=== PATIENT | female | born 1965 | race Caucasian/White ===

== ENCOUNTER → 2018-07-28 | Outpatient (CLI) | payer OTHER ==
[~2018-07-28] MED LIST: IOHEXOL 300 MG/ML 50 ML VIAL. IT ONE; LIDOCAINE 1% Multi-Dose 20 ML VIAL. ID ONE
--- NOTE | 2018-07-28 11:41 | KCIC ---
Thoracic and lumbar myelogram History: Severe back pain into both legs getting worse over the last 3 months Technique: Patient was informed of the risks of the procedure to include pain, infection, bleeding, seizures, nerve root injury, and allergic reaction to the contrast. All questions were answered. Patient signed a written consent form for a thoracic and lumbar myelogram. The patient was placed in a prone oblique position on the fluoroscopy table. External site of the lower back was prepped and draped in the usual sterile fashion. Betadine was utilized for cleansing solution. 1% lidocaine was utilized for local anesthesia at the anticipated site of puncture right L2-3 interlaminar space. A 19-gauge guiding needle was advanced into the soft tissues. Through the guiding needle, a 25 gauge Desmond needle was advanced until there was return of cerebral spinal fluid. Approximately 10 cc of Omnipaque 300 were then injected during fluoroscopic visualization. The needles were removed. Fluoroscopic spot images including standing images were acquired of the thoracic and lumbar spine. The patient was then transferred to the CT department for CT examination of the lumbar spine. There were no immediate complications. Fluoroscopy time: 1 minute 22 seconds, 19 images Findings: There is no evidence of myelographic block. There is posterolateral fusion hardware L4, L5, S1. There are thoracic spinal stimulator leads terminating near the T7 level. Impression: 1. There is posterolateral fusion hardware L4-S1. There are thoracic spinal stimulator leads terminating near the T7 level. Electronically signed by: Ruyd Jeong MD (07/28/2018 11:37 AM) [facility]
--- NOTE | 2018-07-28 12:55 | KCIC ---
CT thoracic and lumbar spine exam History: Severe back pain into bilateral legs getting worse the last 3 months Technique: CT imaging was performed of the thoracic and lumbar spine spine after injection for myelogram. Multiplanar reconstruction images are submitted. Exposure: One or more of the following individualized dose reduction techniques were utilized for this examination: 1. Automated exposure control 2. Adjustment of the mA and/or kV according to patient size 3. Use of iterative reconstruction technique. Comparison: Lumbar spine exam September 21, 2006 Thoracic: Findings: Thoracic vertebral body stature is overall preserved. There is negligible anterior spondylolisthesis at T1-T2, T2-3, T3-4. Thoracic cord caliber is within normal limits. There are posterior thoracic spinal stimulator leads, terminate at the level of T6-7. There is no significant focal posterior disc abnormality of the thoracic spine. There is no thoracic spinal stenosis. There is moderate narrowing of the posterior left T10-11 neural foramen due to facet degenerative change. There is multilevel overall mild degenerative disc disease greatest T5-T6 to T8-T9. IMPRESSION: 1. There are thoracic spinal stimulator leads terminating at T6-7. 2. There is moderate narrowing of the left T10-11 neural foramen due to facet degenerative change. 3. There is multilevel mild degenerative disc disease. Lumbar: FINDINGS: Lumbar vertebral body stature is preserved. AP alignment is unchanged, within normal limits. There is intact posterolateral fusion hardware with bilateral pedicle screws L4, L5, S1 attached to vertical rods. Conus terminates at T12-L1. There is mild degenerative disc disease L1-L2 through L3-4 somewhat greater than previously. There is mild lumbar levoscoliosis. There is again interbody calcification L4-5 and L5-S1. T12-L1: Neural foramina and spinal canal are adequate. L1-L2: There is mild facet degenerative change. There is negligible disc osteophyte complex. Neural foramina and spinal canal are adequate. L2-L3: There is moderate right greater than left facet degenerative change. Spinal canal is adequate. There is mild posterior narrowing of the right neural foramen, left neural foramen adequate. L3-L4: There is moderate facet hypertrophic change. Spinal canal and neural foramina are adequate. L4-L5: There is artifact created by hardware. There is left laminectomy defect. Spinal canal is adequate. Neural foramina are overall adequate. L5-S1: There is left laminectomy defect. Spinal canal is adequate. Neural foramina are somewhat poorly visualized due to artifact created by hardware. Osteophytes contribute to likely at least mild narrowing of the inferior right neural foramen, left neural foramen likely adequate. Impression: 1. There is intact posterolateral fusion hardware L4-S1. There is no lumbar spinal stenosis. There is mild degenerative disc disease L1-L2 through L3-4 progressed since previous 2006 exam. There is probable mild narrowing of the inferior right L5-S1 neural foramen by osteophytes, also mild posterior narrowing on the right at L2-3. Electronically signed by: Rudy Jeong MD (07/28/2018 12:51 PM) [facility]
--- NOTE | 2018-07-28 13:24 | KCIC ---
EXAM: Lumbar spine, flexion and extension. HISTORY: Pain. COMPARISON: CT obtained on the same date. FINDINGS: Frontal, lateral, flexion and extension and coned sacral views of the lumbar spine are obtained. There is instrumented and noninstrumented posterior spinal fusion at L4-S1. There is no motion at the fused levels between flexion and extension. There is degenerative endplate remodeling primarily at L5-S1. There is a generator within the right buttock with leads extending cephalad beyond the [id number]. There is minimal lumbar levocurvature. IMPRESSION: 1. Lumbar spinal fusion at L4-S1. There is no evidence of instrumentation loosening. 2. Degenerative change primarily at the lumbosacral junction. Electronically signed by: Kathia Ramires MD (07/28/2018 1:20 PM) [facility]
== END | disposition home or self-care (01) ==
LOC: KCIC 09:00
PROVIDERS: ATTEND Neurological Surgery
DX: M51.36 Other intervertebral disc degeneration, lumbar region (principal); M48.04 Spinal stenosis, thoracic region; M25.78 Osteophyte, vertebrae; M48.061 Spinal stenosis, lumbar region without neurogenic claudication; M43.27 Fusion of spine, lumbosacral region
CPT/HCPCS: 72110; 72129; 72132; 72270; Q9967

== ENCOUNTER → 2019-08-28 | Outpatient (CLI) | payer MEDICAID, MEDICARE, OTHER ==
[~2019-08-28] MED LIST changes: +IOHEXOL 180 MG/ML 10 ML VIAL. IT ONE; -IOHEXOL 300 MG/ML 50 ML VIAL. IT ONE
--- NOTE | 2019-08-28 17:50 | KCIC ---
Flexion-extension lateral radiographs of lumbar spine to include a Lumbar myelogram 08/28/2019 Clinical History: Low back pain which radiates down both legs, left greater than right. History of previous lumbar spine surgery. Technique: After the risks and benefits of the procedure were explained to the patient, written informed consent was obtained. The patient was placed prone on the fluoroscopy table and the lower back was prepped and draped in sterile fashion. 1% lidocaine was used as a local anesthetic. Under fluoroscopic guidance, the thecal sac of the lumbar cistern was punctured at the L3-4 level using 25-gauge Desmond needle. After confirming clear CSF return, 15 cc of Omnipaque 180 were injected through the needle into the thecal sac of the lumbar cistern under fluoroscopic guidance. Following this the needle was removed and hemostasis achieved at the puncture site. A sterile bandage was placed on the skin puncture site. AP, bilateral oblique, lateral and standing neutral, flexion and extension lateral digital radiographs of the lumbar spine were obtained. Following this the patient was taken to CT where a CT scan of the lumbar spine was performed. This will be reported separately. Following the examinations the patient was sent home with an instruction sheet. The patient tolerated the procedure well and there were no immediate complications. The total fluoroscopic time for this procedure was 1:09 minutes. 9 digital spot images were obtained. Findings: Standing Flexion and extension lateral digital radiographs of lumbar spine were obtained prior to the myelogram. These demonstrate stabilizing rods and pedicle screws extending from L4 to S1. Degenerative changes consisting of vertebral endplate sclerosis and minimal to mild anterior and posterior vertebral body osteophyte formation are seen throughout the lumbar disc spaces. Disc space narrowing is seen at L4-5 and L5-S1. Atherosclerotic calcification of the abdominal aorta and its branches is noted. The alignment of the lumbar vertebrae is maintained on the flexion and extension radiographs. Images from the lumbar myelogram demonstrate very mild S-shaped curvature of the thoracolumbar spine. The patient is post posterolateral fusion using pedicle screws and stabilizing rods at L4-5 and L5-S1. Degenerative changes consisting of disc space narrowing, vertebral endplate sclerosis and minimal to mild anterior and posterior vertebral body osteophyte formation is seen predominantly at the L3-4, L4-5 and L5-S1 levels. Mild anterior and posterior extradural defects are seen upon the contrast column at L1-2, L2-3 and L3-4. There is no evidence of complete block of contrast at any level involving the lumbar vertebrae. The alignment of the lumbar vertebrae is maintained on the flexion and extension radiographs. Atherosclerotic calcification of the abdominal aorta is seen. Impression: 1. Post fusion at L4-5 and L5-S1. 2. Degenerative changes are seen throughout the lumbar disc spaces resulting in mild anterior and posterior extradural defects upon the contrast column at L1-2, L2-3 and L3-4. Electronically signed by: Jose Juan Diaz MD (08/28/2019 5:48 PM) [facility]
--- NOTE | 2019-08-28 18:03 | KCIC ---
CT lumbar myelogram 08/28/2019 Clinical History: Low back pain which radiates down both legs, left greater than right. History of previous lumbar spine surgery. Technique: This study was performed after a lumbar myelogram, contiguous, 0.6 mm axial sections were obtained through the lumbar spine. 3 mm sagittal, coronal and axial reconstructed images were obtained. One or more of the following individualized dose reduction techniques were utilized for this study: 1. Automated exposure control. 2. Adjustment of the mA and/or kV according to patient size. 3. Use of iterative reconstruction technique. Findings: Comparison is made to patient's previous lumbar myelogram dated 07/28/2018. Additional comparison is made to the patient's lumbar myelogram performed earlier today. The sagittal and coronal reconstructed images demonstrate very mild S-shaped curvature of the thoracolumbar spine. The patient is post posterolateral fusion using pedicle screws, stabilizing rods and bone graft material at L4-5 and L5-S1. The right-sided pedicle screw at L4 extends through the cortex of the superior L4 vertebral body into the inferior aspect of the L3-4 disc, anteriorly. This finding is unchanged. Degenerative changes consisting of vertebral endplate sclerosis and minimal to mild anterior vertebral body osteophyte formation are seen throughout the lumbar disc spaces. Disc space narrowing is seen at L4-5 and L5-S1. Atherosclerotic calcification of the abdominal aorta is seen. At the L1-2 disc space is a mild generalized disc bulge. Degenerative changes are seen involving the facet joints, left greater than right. There is mild to moderate ligamentum flavum hypertrophy bilaterally. These findings do not result in significant central spinal canal stenosis. Mild left neural foraminal stenosis is seen. The right neural foramen is patent. At the L2-3 disc space there is a mild generalized disc bulge. Degenerative changes are seen involving the facet joints bilaterally. There is mild ligamentum flavum hypertrophy bilaterally. These findings when combined do not result in significant central spinal canal or neural foraminal stenosis. At the L3-4 disc space there is a mild generalized disc bulge. Degenerative changes are seen involving the facet joints bilaterally. There is mild to moderate ligamentum flavum hypertrophy bilaterally. These findings do not result in significant central spinal canal or neural foraminal stenosis. At the L4-5 disc space patient appears to be post left hemilaminotomy. Degenerative changes are seen involving the facet joints bilaterally. These findings do not result in significant central spinal canal or neural foraminal stenosis. At the L5-S1 disc space the patient appears to be post left laminectomy. Degenerative changes are seen involving the facet joints, right greater than left. These findings do not result in significant central spinal canal stenosis. Mild right neural foraminal stenosis is seen. The left neural foramen is patent. IMPRESSION: 1. Postsurgical changes are seen at L4-5 and L5-S1 as discussed above. 2. The changes of degenerative disc disease are seen involving lumbar spine. These findings do not result in significant central spinal canal stenosis. Mild left neural foraminal stenosis is seen at L1-2. Mild right neural foraminal stenosis is seen at L5-S1. Electronically signed by: Jose Juan Diaz MD (08/28/2019 6:00 PM) [facility]
== END | disposition home or self-care (01) ==
LOC: KCIC 13:34
PROVIDERS: ATTEND Neurological Surgery
DX: M47.26 Other spondylosis with radiculopathy, lumbar region (principal); I70.0 Atherosclerosis of aorta; M25.78 Osteophyte, vertebrae; M48.061 Spinal stenosis, lumbar region without neurogenic claudication; M43.26 Fusion of spine, lumbar region; M48.07 Spinal stenosis, lumbosacral region
CPT/HCPCS: 72100; 72132; 72265; Q9965

== ENCOUNTER 2021-09-24 14:59 | Observation (INO) | payer MEDICARE, OTHER ==
[~2021-09-24] VITALS: Ht 170.2 cm; Wt 90.8 kg
[2021-09-24] MEDS ORDERED: ASPIRIN 325 MG TABLET PO ONE (15:30)
[2021-09-24] MEDS: NITROGLYCERIN SUBLINGUAL 0.4 MG BOTTLE OF 25. SL PRN ×2 (15:35→15:41)
[2021-09-24] MEDS: MORPHINE SULFATE 4 MG/ML INJ. IV/SQ PRN ×2 (15:35→17:40)
[2021-09-24 15:46] LABS: BASO % 1 % (0-3); EOS # 0.2 x10^3/uL (0.0-0.7); EOS % 3 % (0-3); HEMATOCRIT 39.1 % (36.0-47.0); HEMOGLOBIN 13.4 g/dL (12.0-15.5); LYMPH # 1.7 x10^3/uL (1.0-4.8); LYMPH % 32 % (24-48); MEAN CORPUSCULAR HEMOGLOBIN 31 pg (25-35); MEAN CORPUSCULAR HGB CONC 34 g/dL (31-37); MEAN CORPUSCULAR VOLUME 90 fL (79-100); MONO # 0.3 x10^3/uL (0.0-1.1); MONO % 6 % (0-9); NEUT % 58 % (31-73); PLATELET COUNT 273 x10^3/uL (140-400); RED BLOOD COUNT 4.32 x10^6/uL (3.50-5.40); RED CELL DISTRIBUTION WIDTH 13.3 % (11.5-14.5); WHITE BLOOD COUNT 5.2 x10^3/uL (4.0-11.0)
[2021-09-24 15:58] LABS: CALCIUM 8.5 mg/dL (8.5-10.1); CREATININE 0.7 mg/dL (0.6-1.0); GFR 87.2; POTASSIUM 3.8 mmol/L (3.5-5.1)
--- NOTE | 2021-09-24 16:10 | RAD ---
Single AP view of the chest. Comparison: None. Indication: Chest pain Findings: There are degenerative device is identified. The heart is not enlarged. There is no pneumothorax or effusion. No air space or interstitial disease. Impression: 1. No acute cardiopulmonary process. Electronically signed by: Perfecto Diallo MD (09/24/2021 4:08 PM) [facility]
[2021-09-24 16:12] LABS: ALBUMIN 3.5 g/dL (3.4-5.0); ALBUMIN/GLOBULIN RATIO 1.1 (1.0-1.7); MAGNESIUM 1.9 mg/dL (1.8-2.4); TOTAL BILIRUBIN 0.1 mg/dL (0.2-1.0); TOTAL PROTEIN 6.8 g/dL (6.4-8.2)
[2021-09-24 16:19] LABS: BILIRUBIN,URINE NEGATIVE (NEG); CLARITY,URINE CLEAR; COLOR,URINE YELLOW; NITRITE,URINE NEGATIVE (NEG); PROTEIN,URINE NEGATIVE (NEG-TRACE); UROBILINOGEN,URINE 0.2 mg/dL (0.2 mg/dL)
[2021-09-24 16:26] LABS: BACTERIA,URINE MODERATE /HPF (0-FEW); RBC,URINE 0 /HPF (0-2); WBC,URINE 0 /HPF (0-4)
[2021-09-24 16:28] LABS: BARBITURATES POS (NEG); BENZODIAZEPINES NEG (NEG); CANNABINOIDS NEG (NEG); COCAINE NEG (NEG); METHADONE NEG (NEG); OPIATES POS (NEG); PHENCYCLIDINE NEG (NEG)
[2021-09-24 16:29] LABS: AMPHETAMINE/METHAMPHETAMINE NEG (NEG)
--- NOTE | 2021-09-24 16:56 | PHYS DOC ---
Past Medical History Past Medical History: Anxiety, Depression, Hypertension Past Surgical History: Other Additional Past Surgical Histo: SPINE STIMULATOR, ANGIOPLASTY Smoking Status: Current Every Day Smoker Alcohol Use: Occasionally General Adult EDM: Chief Complaint: CHEST PAIN HPI: HPI: Patient is a 56 year old female with a history of angioplasty, anxiety, depression, HTN, who presents to the ED today complaining of a 5 out of 10 substernal chest pain radiating to the right armpit with shortness of breath, symptoms began a week ago. Patient denies anything specifically exacerbating or relieving the symptoms. She states the symptoms are intermittent. She states she took 2 nitroglycerin today with relief of her pain. She states she thinks it could be anxiety but wanted to be checked out. Review of Systems: Review of Systems: Constitutional: Denies fever or chills. [] Eyes: Denies change in visual acuity. [] HENT: Denies nasal congestion or sore throat. [] Respiratory: Reports shortness of breath. Denies cough Cardiac: Reports right-sided chest pain GI: Denies abdominal pain, nausea, vomiting, bloody stools or diarrhea. [] : Denies dysuria. [] Musculoskeletal: Denies back pain or joint pain. [] Integument: Denies rash. [] Neurologic: Denies headache, focal weakness or sensory changes. [] Psychiatric: Denies depression or anxiety. [] Heart Score: C/O Chest Pain: Yes HEART Score for Chest Pain: HEART Score for Chest Pain Response (Comments) Value History Slighlty/Non-Suspicious 0 ECG Normal 0 Age >45 - < 65 1 Risk Factors 1 or 2 Risk Factors 1 Troponin < Normal Limit 0 Total 2 Risk Factors: Risk Factors: DM, Current or recent (<one month) smoker, HTN, HLP, family history of CAD, obesity. Risk Scores: Score 0 - 3: 2.5% MACE over next 6 weeks - Discharge Home Score 4 - 6: 20.3% MACE over next 6 weeks - Admit for Clinical Observation Score 7 - 10: 72.7% MACE over next 6 weeks - Early Invasive Strategies Current Medications: Current Medications Medications (Trade) Dose Ordered Sig/Corky Start Time Stop Time Status Last Admin Dose Admin Aspirin (Lou Aspirin) 325 mg 1X ONCE 09/24/21 15:30 09/24/21 15:31 DC 09/24/21 15:36 325 MG Morphine Sulfate (Morphine Sulfate) 4 mg PRN Q15MIN PRN 09/24/21 15:30 09/25/21 15:29 09/24/21 15:35 4 MG Nitroglycerin (Nitrostat) 0.4 mg PRN Q5MIN PRN 09/24/21 15:30 09/25/21 15:29 09/24/21 15:41 0.4 MG Allergies: Allergies: Allergies Coded Allergies Type Severity Reaction Last Updated Verified No Known Drug Allergies 07/28/18 No Physical Exam: PE: Constitutional: Well developed, well nourished, no acute distress, non-toxic appearance. [] HENT: Normocephalic, atraumatic, bilateral external ears normal, oropharynx moist, no oral exudates, nose normal. [] Eyes: PERRLA, EOMI, conjunctiva normal, no discharge. [] Neck: Normal range of motion, no tenderness, supple, no stridor. [] Cardiovascular:Heart rate regular rhythm, no murmur [] Lungs & Thorax: Bilateral breath sounds clear to auscultation [] Abdomen: Bowel sounds normal, soft, no tenderness, no masses, no pulsatile masses. [] Skin: Warm, dry, no erythema, no rash. [] Back: No tenderness, no CVA tenderness. [] Extremities: No tenderness, no cyanosis, no clubbing, ROM intact, no edema. [] Neurologic: Alert and oriented X 3, normal motor function, normal sensory function, no focal deficits noted. [] Psychologic: Affect normal, judgement normal, mood normal. [] Current Patient Data: Labs: Laboratory Tests Test 09/24/21 15:24 09/24/21 15:53 White Blood Count 5.2 x10^3/uL (4.0-11.0) Red Blood Count 4.32 x10^6/uL (3.50-5.40) Hemoglobin 13.4 g/dL (12.0-15.5) Hematocrit 39.1 % (36.0-47.0) Mean Corpuscular Volume 90 fL (79-100) Mean Corpuscular Hemoglobin 31 pg (25-35) Mean Corpuscular Hemoglobin Concent 34 g/dL (31-37) Red Cell Distribution Width 13.3 % (11.5-14.5) Platelet Count 273 x10^3/uL (140-400) Neutrophils (%) (Auto) 58 % (31-73) Lymphocytes (%) (Auto) 32 % (24-48) Monocytes (%) (Auto) 6 % (0-9) Eosinophils (%) (Auto) 3 % (0-3) Basophils (%) (Auto) 1 % (0-3) Neutrophils # (Auto) 3.0 x10^3/uL (1.8-7.7) Lymphocytes # (Auto) 1.7 x10^3/uL (1.0-4.8) Monocytes # (Auto) 0.3 x10^3/uL (0.0-1.1) Eosinophils # (Auto) 0.2 x10^3/uL (0.0-0.7) Basophils # (Auto) 0.0 x10^3/uL (0.0-0.2) Sodium Level 138 mmol/L (136-145) Potassium Level 3.8 mmol/L (3.5-5.1) Chloride Level 103 mmol/L (98-107) Carbon Dioxide Level 25 mmol/L (21-32) Anion Gap 10 (6-14) Blood Urea Nitrogen 10 mg/dL (7-20) Creatinine 0.7 mg/dL (0.6-1.0) Estimated GFR (Cockcroft-Gault) 87.2 BUN/Creatinine Ratio 14 (6-20) Glucose Level 101 mg/dL (70-99) H Calcium Level 8.5 mg/dL (8.5-10.1) Magnesium Level 1.9 mg/dL (1.8-2.4) Total Bilirubin 0.1 mg/dL (0.2-1.0) L Aspartate Amino Transferase (AST) 11 U/L (15-37) L Alanine Aminotransferase (ALT) 21 U/L (14-59) Alkaline Phosphatase 148 U/L (46-116) H Troponin I High Sensitivity 5 ng/L (4-50) TH-Vqp-I-Type Natriuretic Peptide 127 pg/mL (0-124) H Total Protein 6.8 g/dL (6.4-8.2) Albumin 3.5 g/dL (3.4-5.0) Albumin/Globulin Ratio 1.1 (1.0-1.7) Thyroid Stimulating Hormone (TSH) 0.680 uIU/mL (0.358-3.74) Urine Collection Type Unknown Urine Color Yellow Urine Clarity Clear Urine pH 6.0 (<5.0-8.0) Urine Specific [place] 1.015 (1.000-1.030) Urine Protein Negative mg/dL (NEG-TRACE) Urine Glucose (UA) Negative mg/dL (NEG) Urine Ketones (Stick) Negative mg/dL (NEG) Urine Blood Negative (NEG) Urine Nitrite Negative (NEG) Urine Bilirubin Negative (NEG) Urine Urobilinogen Dipstick 0.2 mg/dL (0.2 mg/dL) Urine Leukocyte Esterase Negative (NEG) Urine RBC 0 /HPF (0-2) Urine WBC 0 /HPF (0-4) Urine Squamous Epithelial Cells Mod /LPF Urine Bacteria Moderate /HPF (0-FEW) Urine Mucus Slight /LPF Urine Opiates Screen Pos (NEG) Urine Methadone Screen Neg (NEG) Urine Barbiturates Pos (NEG) Urine Phencyclidine Screen Neg (NEG) Urine Amphetamine/Methamphetamine Neg (NEG) Urine Benzodiazepines Screen Neg (NEG) Urine Cocaine Screen Neg (NEG) Urine Cannabinoids Screen Neg (NEG) Urine Ethyl Alcohol Neg (NEG) Laboratory Tests 09/24/21 15:24 Laboratory Tests 09/24/21 15:24 Vital Signs: Vital Signs Date Time Temp Pulse Resp B/P (MAP) Pulse Ox O2 Delivery O2 Flow Rate FiO2 09/24/21 15:41 71 124/69 09/24/21 15:38 14 97 Room Air 09/24/21 15:02 99.0 99.0 EKG: EK interpreted by Dr. Chaves sinus rhythm heart rate 66 no STEMI [] [address] Chaves sinus rhythm heart rate 62 no STEMI [] Radiology/Procedures: Radiology/Procedures: []PROCEDURE: PORTABLE CHEST 1V Single AP view of the chest. Comparison: None. Indication: Chest pain Findings: There are degenerative device is identified. The heart is not enlarged. There is no pneumothorax or effusion. No air space or interstitial disease. Impression: 1. No acute cardiopulmonary process. Electronically signed by: Perfecto Diallo MD (09/24/2021 4:08 PM) [facility] DICTATED and SIGNED BY: PERFECTO DIALLO MD DATE: 09/24/21 [id number] 0 Course & Med Decision Making: Course & Med Decision Making Pertinent Labs and Imaging studies reviewed. (See chart for details) This is a 56-year-old female patient presented to the ED today complaining of right-sided chest pain radiating to the right armpit, symptoms for a week. EKG is negative. Troponin is normal, chest x-ray is negative, vitals are st able. Spoke with Dr. Celaya who accepted patient for admission Routine consult placed for cardiology Dragon Disclaimer: Sarai Disclaimer: This electronic medical record was generated, in whole or in part, using a voice recognition dictation system. Departure Departure Impression: Primary Impression: Chest pain Qualified Codes: R07.9 - Chest pain, unspecified Disposition: ADMITTED INPATIENT Condition: STABLE Referrals: LUCINDA ALEJANDRO MD (PCP) SARA CASTELLANO POWER PRESS OPERATOR Sep 24, 2021 16:55
--- NOTE | 2021-09-24 18:55 | EKG ---
[facility] [address] [place] [address] Test Date: 2021-09-24 Test Time: 15:10:42 Pat Name: TRAY MONZON Department: Room: Gender: F Induction Heat Treater: : 1965 Requested By: SARA CASTELLANO Order Number: [id number] Reading MD: Ke Gutierrez MD Measurements Intervals [place] Rate: 66 P: 0 [place]: 158 QRS: 20 QRSD: 84 T: 9 QT: 404 QTc: 425 Interpretive Statements SINUS RHYTHM Electronically Signed On 09-28-2021 21:40:37 RESIDENTIAL INSTALLER by Ke Gutierrez MD
--- NOTE | 2021-09-24 18:56 | EKG ---
[facility] [address] [place] [address] Test Date: 2021-09-24 Test Time: 16:12:02 Pat Name: TRAY MONZON Department: Room: Gender: F Power Barker: : 1965 Requested By: SARA CASTELLANO Order Number: [id number] Reading MD: Ke Gutierrez MD Measurements Intervals [place] Rate: 62 P: 27 [place]: 174 QRS: 18 QRSD: 82 T: 9 QT: 404 QTc: 412 Interpretive Statements SINUS RHYTHM Electronically Signed On 09-28-2021 21:40:00 PAN PULLER by Ke Gutierrez MD
[2021-09-24] MEDS ORDERED: MORPHINE SULFATE 4 MG/ML INJ. IVP PRN (20:30)
[2021-09-24] MEDS ORDERED: NITROGLYCERIN SUBLINGUAL 0.4 MG BOTTLE OF 25. SL PRN (20:30)
[2021-09-24] MEDS ORDERED: ONDANSETRON PF 4 MG/2 ML VIAL. IVP PRN (20:30)
[2021-09-24 23:31] VITALS: BP 114/72
[2021-09-25] VITALS (13 sets, daily range): BP systolic 100–124; BP diastolic 49–58
[2021-09-25] MEDS ORDERED: DULO60CA7 PO (00:19)
[2021-09-25] MEDS ORDERED: LISI10TA16 PO (00:19)
[2021-09-25] MEDS ORDERED: CLONAZEPAM1 MG PO (00:19)
[2021-09-25] MEDS ORDERED: CYAN-25 PO (00:19)
[2021-09-25] MEDS ORDERED: TIZA-75 PO (00:19)
[2021-09-25] MEDS ORDERED: OMEP40CA7 PO (00:19)
[2021-09-25] MEDS ORDERED: METH-562 PO (00:19)
[2021-09-25] MEDS ORDERED: MORP-16 PO (00:19)
[2021-09-25] MEDS ORDERED: ROPI1TAB4 PO (00:19)
[2021-09-25] MEDS ORDERED: GABA300C18 PO (00:19)
[2021-09-25 06:27] LABS: BASO % 1 % (0-3); EOS # 0.2 x10^3/uL (0.0-0.7); EOS % 4 % (0-3); HEMATOCRIT 35.1 % (36.0-47.0); HEMOGLOBIN 11.7 g/dL (12.0-15.5); LYMPH # 2.2 x10^3/uL (1.0-4.8); LYMPH % 42 % (24-48); MEAN CORPUSCULAR HEMOGLOBIN 30 pg (25-35); MEAN CORPUSCULAR HGB CONC 33 g/dL (31-37); MEAN CORPUSCULAR VOLUME 91 fL (79-100); MONO # 0.5 x10^3/uL (0.0-1.1); MONO % 10 % (0-9); NEUT # 2.2 x10^3/uL (1.8-7.7); NEUT % 44 % (31-73); PLATELET COUNT 229 x10^3/uL (140-400); RED BLOOD COUNT 3.87 x10^6/uL (3.50-5.40); WHITE BLOOD COUNT 5.1 x10^3/uL (4.0-11.0)
[2021-09-25 06:41] LABS: ALBUMIN 3.2 g/dL (3.4-5.0); ALBUMIN/GLOBULIN RATIO 1.1 (1.0-1.7); CALCIUM 8.7 mg/dL (8.5-10.1); CREATININE 0.6 mg/dL (0.6-1.0); GFR 104.2; POTASSIUM 3.9 mmol/L (3.5-5.1); TOTAL BILIRUBIN 0.2 mg/dL (0.2-1.0); TOTAL PROTEIN 6.2 g/dL (6.4-8.2)
--- NOTE | 2021-09-25 10:30 | PDOC2 ---
SURENDRA ALBARRAN APPLICATION DEVELOPMENT SPECIALIST 09/25/21 1030: CARDIAC CONSULT DATE OF CONSULT Date of Consult DATE: 09/25/21 TIME: 10:07 REASON FOR CONSULT Reason for Consult: Chest pain REFERRING PHYSICIAN Referring Physician: Susan SOURCE Source: Chart review, Patient HISTORY OF PRESENT ILLNESS HISTORY OF PRESENT ILLNESS This is a pleasant 56 yo female admitted for complains of chest pain. This started Thanksgiving and has been having SOA with it. Described as chest achiness more to right side going to her armpit precipitated by short distance walking or exertion. No nausea or vomiting. She takes metoprolol and lisinopril bu no statin and has not taken ASA since she was told to stop it 4 months ago for her spinal stimulator placement. She has not seen a gas appliance servicer in a while. No known covid-19 exposure and she has been vaccinated. No fever chills or cough. Also she has noticed her SBP at times runs at 180s. PAST MEDICAL HISTORY Cardiovascular: CAD, HTN, Hyperlipidemia Pulmonary: No pertinent hx CENTRAL NERVOUS SYSTEM: TIA, Other (Cerebral AVM. Arnold chiari malformation) GI: GERD Heme/Onc: No pertinent hx Hepatobiliary: No pertinent hx Psych: Anxiety Musculoskeletal: low back pain, Osteoarthritis, Other (chronic back pain syndrome) Rheumatologic: No pertinent hx Infectious disease: No pertinent hx ENT: No pertinent hx Renal/: No pertinent hx Endocrine: Hypothyroidism Dermatology: No pertinent hx PAST SURGICAL HISTORY Past Surgical History: Hysterectomy, Other (PCI 15 yrs ago; left shoulder ligament repair, spinal stimulator placement with last change 4 months ago, Small bowel resection) FAMILY HISTORY Family History: Coronary Artery Disease (father), Heart Disease (mother) SOCIAL HISTORY Smoke: <1 pack per day ALCOHOL: none Drugs: None Lives: with Family CURRENT MEDICATIONS CURRENT MEDICATIONS Current Medications Medications (Trade) Dose Ordered Sig/Corky Route PRN Reason Start Time Stop Time Status Last Admin Dose Admin Aspirin (Lou Aspirin) 325 mg 1X ONCE PO 09/24/21 15:30 09/24/21 15:31 DC 09/24/21 15:36 Nitroglycerin (Nitrostat) 0.4 mg PRN Q5MIN PRN SL CP RATING > 1/10 09/24/21 15:30 09/25/21 15:29 09/24/21 15:41 Morphine Sulfate (Morphine Sulfate) 4 mg PRN Q15MIN PRN IV/SQ PAIN GREATER THAN 3/10 09/24/21 15:30 09/25/21 15:29 09/24/21 17:40 ALLERGIES ALLERGIES: Coded Allergies: No Known Drug Allergies (Unverified , 07/28/18) ROS Review of System 14 point ROS evaluated with pertinent positives noted per HPI PHYSICAL EXAM General: Alert, Oriented X3, Cooperative, No acute distress HEENT: Atraumatic, Mucous membr. moist/pink Lungs: Clear to auscultation, Normal air movement Heart: Regular rate (SR), Normal S1, Normal S2, No murmurs Abdomen: Soft, No tenderness Extremities: No cyanosis, No edema Skin: No breakdown, No significant lesion Neuro: Normal speech, Sensation intact Psych/Mental Status: Mental status NL, Mood NL MUSCULOSKELETAL: Osteoarthritic changes both hands VITALS/I&O VITALS/I&O: Vital Signs Date Time Temp Pulse Resp B/P (MAP) Pulse Ox O2 Delivery O2 Flow Rate FiO2 09/25/21 07:00 97.8 71 18 104/55 (71) 96 Room Air 97.8 LABS Lab: Laboratory Tests Test 09/24/21 15:24 09/24/21 15:53 09/24/21 17:58 09/24/21 20:07 White Blood Count 5.2 x10^3/uL (4.0-11.0) Red Blood Count 4.32 x10^6/uL (3.50-5.40) Hemoglobin 13.4 g/dL (12.0-15.5) Hematocrit 39.1 % (36.0-47.0) Mean Corpuscular Volume 90 fL (79-100) Mean Corpuscular Hemoglobin 31 pg (25-35) Mean Corpuscular Hemoglobin Concent 34 g/dL (31-37) Red Cell Distribution Width 13.3 % (11.5-14.5) Platelet Count 273 x10^3/uL (140-400) Neutrophils (%) (Auto) 58 % (31-73) Lymphocytes (%) (Auto) 32 % (24-48) Monocytes (%) (Auto) 6 % (0-9) Eosinophils (%) (Auto) 3 % (0-3) Basophils (%) (Auto) 1 % (0-3) Neutrophils # (Auto) 3.0 x10^3/uL (1.8-7.7) Lymphocytes # (Auto) 1.7 x10^3/uL (1.0-4.8) Monocytes # (Auto) 0.3 x10^3/uL (0.0-1.1) Eosinophils # (Auto) 0.2 x10^3/uL (0.0-0.7) Basophils # (Auto) 0.0 x10^3/uL (0.0-0.2) Sodium Level 138 mmol/L (136-145) Potassium Level 3.8 mmol/L (3.5-5.1) Chloride Level 103 mmol/L (98-107) Carbon Dioxide Level 25 mmol/L (21-32) Anion Gap 10 (6-14) Blood Urea Nitrogen 10 mg/dL (7-20) Creatinine 0.7 mg/dL (0.6-1.0) Estimated GFR (Cockcroft-Gault) 87.2 BUN/Creatinine Ratio 14 (6-20) Glucose Level 101 mg/dL (70-99) H Calcium Level 8.5 mg/dL (8.5-10.1) Magnesium Level 1.9 mg/dL (1.8-2.4) Total Bilirubin 0.1 mg/dL (0.2-1.0) L Aspartate Amino Transferase (AST) 11 U/L (15-37) L Alanine Aminotransferase (ALT) 21 U/L (14-59) Alkaline Phosphatase 148 U/L (46-116) H Troponin I High Sensitivity 5 ng/L (4-50) < 4 ng/L (4-50) L 4 ng/L (4-50) BJ-Dif-V-Type Natriuretic Peptide 127 pg/mL (0-124) H Total Protein 6.8 g/dL (6.4-8.2) Albumin 3.5 g/dL (3.4-5.0) Albumin/Globulin Ratio 1.1 (1.0-1.7) Thyroid Stimulating Hormone (TSH) 0.680 uIU/mL (0.358-3.74) Urine Collection Type Unknown Urine Color Yellow Urine Clarity Clear Urine pH 6.0 (<5.0-8.0) Urine Specific [place] 1.015 (1.000-1.030) Urine Protein Negative mg/dL (NEG-TRACE) Urine Glucose (UA) Negative mg/dL (NEG) Urine Ketones (Stick) Negative mg/dL (NEG) Urine Blood Negative (NEG) Urine Nitrite Negative (NEG) Urine Bilirubin Negative (NEG) Urine Urobilinogen Dipstick 0.2 mg/dL (0.2 mg/dL) Urine Leukocyte Esterase Negative (NEG) Urine RBC 0 /HPF (0-2) Urine WBC 0 /HPF (0-4) Urine Squamous Epithelial Cells Mod /LPF Urine Bacteria Moderate /HPF (0-FEW) Urine Mucus Slight /LPF Urine Opiates Screen Pos (NEG) Urine Methadone Screen Neg (NEG) Urine Barbiturates Pos (NEG) Urine Phencyclidine Screen Neg (NEG) Urine Amphetamine/Methamphetamine Neg (NEG) Urine Benzodiazepines Screen Neg (NEG) Urine Cocaine Screen Neg (NEG) Urine Cannabinoids Screen Neg (NEG) Urine Ethyl Alcohol Neg (NEG) Test 09/24/21 21:30 09/25/21 04:45 09/25/21 04:50 SARS-CoV-2 Antigen (Rapid) Negative (NEGATIVE) White Blood Count 5.1 x10^3/uL (4.0-11.0) Red Blood Count 3.87 x10^6/uL (3.50-5.40) Hemoglobin 11.7 g/dL (12.0-15.5) L Hematocrit 35.1 % (36.0-47.0) L Mean Corpuscular Volume 91 fL (79-100) Mean Corpuscular Hemoglobin 30 pg (25-35) Mean Corpuscular Hemoglobin Concent 33 g/dL (31-37) Red Cell Distribution Width 13.0 % (11.5-14.5) Platelet Count 229 x10^3/uL (140-400) Neutrophils (%) (Auto) 44 % (31-73) Lymphocytes (%) (Auto) 42 % (24-48) Monocytes (%) (Auto) 10 % (0-9) H Eosinophils (%) (Auto) 4 % (0-3) H Basophils (%) (Auto) 1 % (0-3) Neutrophils # (Auto) 2.2 x10^3/uL (1.8-7.7) Lymphocytes # (Auto) 2.2 x10^3/uL (1.0-4.8) Monocytes # (Auto) 0.5 x10^3/uL (0.0-1.1) Eosinophils # (Auto) 0.2 x10^3/uL (0.0-0.7) Basophils # (Auto) 0.0 x10^3/uL (0.0-0.2) Sodium Level 142 mmol/L (136-145) Potassium Level 3.9 mmol/L (3.5-5.1) Chloride Level 105 mmol/L (98-107) Carbon Dioxide Level 30 mmol/L (21-32) Anion Gap 7 (6-14) Blood Urea Nitrogen 13 mg/dL (7-20) Creatinine 0.6 mg/dL (0.6-1.0) Estimated GFR (Cockcroft-Gault) 104.2 BUN/Creatinine Ratio 22 (6-20) H Glucose Level 73 mg/dL (70-99) Calcium Level 8.7 mg/dL (8.5-10.1) Total Bilirubin 0.2 mg/dL (0.2-1.0) Aspartate Amino Transferase (AST) 13 U/L (15-37) L Alanine Aminotransferase (ALT) 17 U/L (14-59) Alkaline Phosphatase 128 U/L (46-116) H Total Protein 6.2 g/dL (6.4-8.2) L Albumin 3.2 g/dL (3.4-5.0) L Albumin/Globulin Ratio 1.1 (1.0-1.7) Laboratory Tests 09/24/21 15:24 09/25/21 04:45 Laboratory Tests 09/24/21 15:24 09/25/21 04:50 ASSESSMENT/PLAN ASSESSMENT/PLAN 1. Chest pain: UA features 2. CAD: PCI 15 yrs ago 3. HTN: controlled 4. HLP 5. 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 Tobaccoism 7. Chronic back pain with spinal stenosis and spinal stimulator placed 3 months ago. Recommendations 1. Establish outpt cardiology followup 2. ASA. Start statin per lipid level 3. TTE. [facility] today witsks and benefits discussed and agreeable to proceed 4. Continue home BP meds. 5. Smoking cessation WALTER LLOYD MD 09/25/21 1531: CARDIAC CONSULT ASSESSMENT/PLAN ASSESSMENT/PLAN Patient seen and examined. Agree with above nurse practitioner note. 56 old woman with unstable angina. Given multiple risk factors she underwent coronary angiography. No clear evidence of obstructive coronary disease. Suspect musculoskeletal pain. Okay to discharge from a cardiac perspective. Discussed with nursing staff and primary care team. SURENDRA ALBARRAN APRN Sep 25, 2021 10:30 WALTER LLOYD MD Sep 25, 2021 15:31
[2021-09-25] MEDS ORDERED: IODIXANOL 320 MG/ML 100 ML VIAL. ONE (10:32)
[2021-09-25] MEDS ORDERED: LIDOCAINE 1% PF 2 ML VIAL. ONE (10:32)
[2021-09-25] MEDS ORDERED: HEPARIN for ARTERIAL LINE 1,500 ML ONE (10:33)
--- NOTE | 2021-09-25 10:43 | NUR ---
SS following for discharge planning. SS reviewed pt chart and discussed with pt RN. Pt is from home with spouse and is currently on room air. Rapid COVID19 negative. PCR pending at this time. Cardiology consulted. Left Heart Cath today. SS will continue to follow for discharge planning.
[2021-09-25] MEDS ORDERED: fentaNYL PF VIAL 100 MCG/2 ML VIAL ONE (10:50)
[2021-09-25] MEDS ORDERED: MIDAZOLAM HCL/PF 2 MG/2 ML VIAL. ONE (10:51)
[2021-09-25] MEDS ORDERED: HEPARIN for IV BOLUS 10,000 UNIT/10 ML VIAL. ONE (10:51)
[2021-09-25] MEDS ORDERED: VERAPAMIL 5 MG/2 ML VIAL. ONE (10:51)
[2021-09-25] MEDS ORDERED: NITROGLYCERIN 200 MCG/2 ML SYRINGE FOR CATH/VASC LAB. ONE ×2 (10:51→11:30)
[2021-09-25 10:56] LABS: CHOLESTEROL/HDL RATIO 3.3
[2021-09-25] MEDS ORDERED: VERAPAMIL 5 MG/2 ML VIAL. IART ONE (11:45)
[2021-09-25] MEDS ORDERED: CONTRAST GIVEN. MC PRN (11:45)
[2021-09-25] MEDS ORDERED: NITROGLYCERIN 200 MCG/2 ML SYRINGE FOR CATH/VASC LAB. IART ONE (11:45)
[2021-09-25] MEDS ORDERED: fentaNYL PF VIAL 100 MCG/2 ML VIAL IV ONE (11:45)
[2021-09-25] MEDS ORDERED: IODIXANOL 320 MG/ML 100 ML VIAL. IART ONE (11:45)
[2021-09-25] MEDS ORDERED: LIDOCAINE 1% PF 2 ML VIAL. INJ ONE (11:45)
[2021-09-25] MEDS ORDERED: MIDAZOLAM HCL/PF 2 MG/2 ML VIAL. IV ONE (11:45)
[2021-09-25] MEDS ORDERED: HEPARIN for IV BOLUS 10,000 UNIT/10 ML VIAL. IART ONE (11:45)
[2021-09-25] MEDS: GABAPENTIN 300 MG CAPSULE. PO SCH ×2 (12:38→21:23)
[2021-09-25] MEDS: MORPHINE ER 30 MG TABLET.ER PO SCH ×2 (12:38→21:22)
[2021-09-25] MEDS: CYANOCOBALAMIN (VITAMIN B-12) 1,000 MCG TABLET. PO SCH (12:38)
[2021-09-25] MEDS: DULoxetine HCL 30 MG CAPSULE.DR PO SCH (12:38)
[2021-09-25] MEDS: clonazePAM 0.5 MG TABLET PO SCH ×2 (12:38→21:22)
[2021-09-25] MEDS: PANTOPRAZOLE 40 MG TABLET.DR. PO SCH (12:39)
[2021-09-25] MEDS: LISINOPRIL 10 MG TABLET PO SCH (12:39)
[2021-09-25] MEDS: METHOCARBAMOL 750 MG TABLET PO SCH ×2 (12:39→21:22)
--- NOTE | 2021-09-25 13:09 | PDOC1 ---
History and Physical Date of Service: DOS: DATE: 09/25/21 TIME: 13:05 Chief Complaint: Chief Complain: chest pain History of Present Illness: HPI: Patient is a 56 year old female with a history of angioplasty, anxiety, depression, HTN, who presents to the ED overnight c/o substernal chest pain radiating to the right armpit with shortness of breath; symptoms began a week ago. Patient denies anything specifically exacerbating or relieving the symptoms. She states the symptoms are intermittent. She states she took 2 ni troglycerin with relief of her pain. She states she thinks it could be anxiety but wanted to be checked out. Evaluated by cardiology planning for cath 09/25 Past Medical/Surgical History: PMH/PSH: Past Medical History: Anxiety, Depression, Hypertension Past Surgical History: Other Additional Past Surgical Histo: SPINE STIMULATOR, ANGIOPLASTY Allergies: Allergies: Coded Allergies: No Known Drug Allergies (Unverified , 07/28/18) Family History: Family History: HTN Social History: Social History: Smoking Status: Current Every Day Smoker Alcohol Use: Occasionally no drug use Current Medications: Current Medications Current Medications Aspirin (Lou Aspirin) 325 mg 1X ONCE PO Last administered on 09/24/21at 15:36; Start 09/24/21 at 15:30; Stop 09/24/21 at 15:31; Status DC Nitroglycerin (Nitrostat) 0.4 mg PRN Q5MIN PRN SL CP RATING > 1/10 Last administered on 09/24/21at 15:41; Start 09/24/21 at 15:30; Stop 09/25/21 at 11:10; Status DC Morphine Sulfate (Morphine Sulfate) 4 mg PRN Q15MIN PRN IV/SQ PAIN GREATER THAN 3/10 Last administered on 09/24/21at 17:40; Start 09/24/21 at 15:30; Stop 09/25/21 at 15:29 Ondansetron HCl (Zofran) 4 mg PRN Q8HRS PRN IVP NAUSEA/VOMITING; Start 09/24/21 at 20:30; Stop 09/25/21 at 20:29 Morphine Sulfate (Morphine Sulfate) 4 mg PRN Q2HR PRN IVP PAIN; Start 09/24/21 at 20:30; Stop 09/25/21 at 20:29 Nitroglycerin (Nitrostat) 0.4 mg PRN Q5MIN PRN SL CHEST PAIN; Start 09/24/21 at 20:30; Stop 09/25/21 at 20:29 Iodixanol (Visipaque 320) 100 ml STK-MED ONCE .ROUTE ; Start 09/25/21 at 10:32; Stop 09/25/21 at 10:33; Status DC Lidocaine HCl (Xylocaine-Mpf 1% 2ml Vial) 2 ml STK-MED ONCE .ROUTE ; Start 09/25/21 at 10:32; Stop 09/25/21 at 10:33; Status DC Heparin Sodium/ Sodium Chloride 1,500 ml @ As Directed STK-MED ONCE .ROUTE ; Start 09/25/21 at 10:33; Stop 09/25/21 at 10:33; Status DC Fentanyl Citrate (Fentanyl 2ml Vial) 100 mcg STK-MED ONCE .ROUTE ; Start 09/25/21 at 10:50; Stop 09/25/21 at 10:51; Status DC Midazolam HCl (Versed) 2 mg STK-MED ONCE .ROUTE ; Start 09/25/21 at 10:51; Stop 09/25/21 at 10:51; Status DC Heparin Sodium (Porcine) (Heparin Sodium) 10,000 unit STK-MED ONCE .ROUTE ; Start 09/25/21 at 10:51; Stop 09/25/21 at 10:51; Status DC Verapamil HCl (Verapamil) 5 mg STK-MED ONCE .ROUTE ; Start 09/25/21 at 10:51; Stop 09/25/21 at 10:51; Status DC Nitroglycerin (Nitroglycerin) 200 mcg STK-MED ONCE .ROUTE ; Start 09/25/21 at 10:51; Stop 09/25/21 at 10:51; Status DC Cyanocobalamin (Vitamin B-12) 1,000 mcg DAILY PO Last administered on 09/25/21at 12:38; Start 09/25/21 at 12:00 Gabapentin (Neurontin) 300 mg BID PO Last administered on 09/25/21at 12:38; Start 09/25/21 at 12:00 Lisinopril (Prinivil) 10 mg DAILY PO Last administered on 09/25/21at 12:39; Start 09/25/21 at 12:00 Methocarbamol (Robaxin) 750 mg TID PO Last administered on 09/25/21at 12:39; Start 09/25/21 at 14:00 Morphine Sulfate (Ms Contin) 30 mg BID PO Last administered on 09/25/21at 12:38; Start 09/25/21 at 12:00 Ropinirole HCl (Requip) 1 mg QHS PO ; Start 09/25/21 at 21:00 Clonazepam (KlonoPIN) 0.5 mg BID PO Last administered on 09/25/21at 12:38; Start 09/25/21 at 12:00 Duloxetine HCl (Cymbalta) 60 mg DAILY PO Last administered on 09/25/21at 12:38; Start 09/25/21 at 12:00 Pantoprazole Sodium (Protonix) 40 mg DAILYAC PO Last administered on 09/25/21at 12:39; Start 09/25/21 at 11:30 Nitroglycerin (Nitroglycerin) 200 mcg STK-MED ONCE .ROUTE ; Start 09/25/21 at 11:30; Stop 09/25/21 at 11:31; Status DC Nitroglycerin (Nitroglycerin) 200 mcg 1X ONCE IART Last administered on 09/25/21at 11:45; Start 09/25/21 at 11:45; Stop 09/25/21 at 11:46; Status DC Verapamil HCl (Verapamil) 2.5 mg 1X ONCE IART Last administered on 09/25/21at 11:47; Start 09/25/21 at 11:45; Stop 09/25/21 at 11:46; Status DC Heparin Sodium (Porcine) (Heparin Sodium) 2,500 unit 1X ONCE IART Last ad ministered on 09/25/21at 11:48; Start 09/25/21 at 11:45; Stop 09/25/21 at 11:46; Status DC Heparin Sodium/ Sodium Chloride (HEPARIN for ARTERIAL LINE FLUSH) 1,000 unit 1X ONCE IART Last administered on 09/25/21at 11:45; Start 09/25/21 at 11:45; Stop 09/25/21 at 11:46; Status DC Midazolam HCl (Versed) 2 mg 1X ONCE IV Last administered on 09/25/21at 11:46; Start 09/25/21 at 11:45; Stop 09/25/21 at 11:46; Status DC Fentanyl Citrate (Fentanyl 2ml Vial) 50 mcg 1X ONCE IV Last administered on 09/25/21at 11:46; Start 09/25/21 at 11:45; Stop 09/25/21 at 11:46; Status DC Iodixanol (Visipaque 320) 100 ml 1X ONCE IART Last administered on 09/25/21at 11:45; Start 09/25/21 at 11:45; Stop 09/25/21 at 11:46; Status DC Lidocaine HCl (Xylocaine-Mpf 1% 2ml Vial) 2 ml 1X ONCE INJ Last administered on 09/25/21at 11:47; Start 09/25/21 at 11:45; Stop 09/25/21 at 11:46; Status DC Info (CONTRAST GIVEN -- Rx MONITORING) 1 each PRN DAILY PRN MC SEE COMMENTS; Start 09/25/21 at 11:45; Stop 09/27/21 at 11:44 Aspirin (Ecotrin) 81 mg DAILYWBKFT PO ; Start 09/25/21 at 13:00 Atorvastatin Calcium (Lipitor) 20 mg QHS PO ; Start 09/25/21 at 21:00 Active Scripts Active Reported Vitamin B-12 (Cyanocobalamin (Vitamin B-12)) 1,000 Mcg Tablet 1,000 Mcg PO DAILY Tizanidine Hcl 4 Mg Tablet 2 Mg PO TID PRN Lisinopril 10 Mg Tablet 10 Mg PO DAILY Morphine Sulfate Er (Morphine Sulfate) 30 Mg Tablet.er 1 Tab PO BID Methocarbamol 750 Mg Tablet 750 Mg PO TID Ropinirole Hcl 1 Mg Tablet 1 Mg PO QHS Clonazepam 1 Mg Tablet 0.5 Mg PO BID Omeprazole 40 Mg Capsule. 40 Mg PO DAILY Cymbalta (Duloxetine Hcl) 60 Mg Capsule. 60 Mg PO DAILY Gabapentin (Gabapentin) 300 Mg Capsule 300 Mg PO BID ROS: Review of Systems Review of System As noted in HPI 14 point review of systems was negative Physical Exam: Vital Signs: Vital Signs Date Time Temp Pulse Resp B/P (MAP) Pulse Ox O2 Delivery O2 Flow Rate FiO2 09/25/21 12:39 66 105/67 09/25/21 11:56 12 96 Nasal Cannula 2.0 09/25/21 11:00 97.8 97.8 Physcial Exam: GEN: No apparent distress. Alert and oriented HEENT: Normal cephalic, atraumatic, external auditory canals are patent EYES: Extraocular muscles are intact, pupil are equally round and reactive to light and accommodation MUSCULOSKELETAL: Well developed , well nourished, good range of motion ENDOCRINE: No thyromegaly was palpated LYMPHATICS: No cervical chain or axillary nodes were noted HEMATOPOIETIC: No bruising NECK: Supple, no JVD, no thyromegaly was noted LUNGS: Clear to auscultation in all lung thompson without rhonchi or wheezing HEART: RRR, S1, S2 present. Peripheral pulses intact, no obvious murmurs noted ABDOMEN: Soft, nontender. Positive bowel sounds, no organomegaly, normal bowel sounds EXTREMITIES: Without clubbing, cyanosis, or edema. Pedal pulses intact. Negative Homans sign NEUROLOGIC: Normal speech and tone. A&O x 3, moves all extremities, no obvious focal deficits PSYCHIATRIC: Normal affect, normal mood. Stable SKIN: No ulcerations or rashes, good skin turgor, no jaundice VASCULAR: Good capillary refill, neurovascular bundle appears to be intact Labs: Labs: Laboratory Tests Test 09/24/21 15:24 09/24/21 15:53 09/24/21 17:58 09/24/21 20:07 White Blood Count 5.2 x10^3/uL (4.0-11.0) Red Blood Count 4.32 x10^6/uL (3.50-5.40) Hemoglobin 13.4 g/dL (12.0-15.5) Hematocrit 39.1 % (36.0-47.0) Mean Corpuscular Volume 90 fL (79-100) Mean Corpuscular Hemoglobin 31 pg (25-35) Mean Corpuscular Hemoglobin Concent 34 g/dL (31-37) Red Cell Distribution Width 13.3 % (11.5-14.5) Platelet Count 273 x10^3/uL (140-400) Neutrophils (%) (Auto) 58 % (31-73) Lymphocytes (%) (Auto) 32 % (24-48) Monocytes (%) (Auto) 6 % (0-9) Eosinophils (%) (Auto) 3 % (0-3) Basophils (%) (Auto) 1 % (0-3) Neutrophils # (Auto) 3.0 x10^3/uL (1.8-7.7) Lymphocytes # (Auto) 1.7 x10^3/uL (1.0-4.8) Monocytes # (Auto) 0.3 x10^3/uL (0.0-1.1) Eosinophils # (Auto) 0.2 x10^3/uL (0.0-0.7) Basophils # (Auto) 0.0 x10^3/uL (0.0-0.2) Sodium Level 138 mmol/L (136-145) Potassium Level 3.8 mmol/L (3.5-5.1) Chloride Level 103 mmol/L (98-107) Carbon Dioxide Level 25 mmol/L (21-32) Anion Gap 10 (6-14) Blood Urea Nitrogen 10 mg/dL (7-20) Creatinine 0.7 mg/dL (0.6-1.0) Estimated GFR (Cockcroft-Gault) 87.2 BUN/Creatinine Ratio 14 (6-20) Glucose Level 101 mg/dL (70-99) Calcium Level 8.5 mg/dL (8.5-10.1) Magnesium Level 1.9 mg/dL (1.8-2.4) Total Bilirubin 0.1 mg/dL (0.2-1.0) Aspartate Amino Transf (AST/SGOT) 11 U/L (15-37) Alanine Aminotransferase (ALT/SGPT) 21 U/L (14-59) Alkaline Phosphatase 148 U/L (46-116) Troponin I High Sensitivity 5 ng/L (4-50) < 4 ng/L (4-50) 4 ng/L (4-50) ZV-Hhc-W-Type Natriuretic Peptide 127 pg/mL (0-124) Total Protein 6.8 g/dL (6.4-8.2) Albumin 3.5 g/dL (3.4-5.0) Albumin/Globulin Ratio 1.1 (1.0-1.7) Thyroid Stimulating Hormone (TSH) 0.680 uIU/mL (0.358-3.74) Urine Collection Type Unknown Urine Color Yellow Urine Clarity Clear Urine pH 6.0 (<5.0-8.0) Urine Specific [place] 1.015 (1.000-1.030) Urine Protein Negative mg/dL (NEG-TRACE) Urine Glucose (UA) Negative mg/dL (NEG) Urine Ketones (Stick) Negative mg/dL (NEG) Urine Blood Negative (NEG) Urine Nitrite Negative (NEG) Urine Bilirubin Negative (NEG) Urine Urobilinogen Dipstick 0.2 mg/dL (0.2 mg/dL) Urine Leukocyte Esterase Negative (NEG) Urine RBC 0 /HPF (0-2) Urine WBC 0 /HPF (0-4) Urine Squamous Epithelial Cells Mod /LPF Urine Bacteria Moderate /HPF (0-FEW) Urine Mucus Slight /LPF Urine Opiates Screen Pos (NEG) Urine Methadone Screen Neg (NEG) Urine Barbiturates Pos (NEG) Urine Phencyclidine Screen Neg (NEG) Urine Amphetamine/Methamphetamine Neg (NEG) Urine Benzodiazepines Screen Neg (NEG) Urine Cocaine Screen Neg (NEG) Urine Cannabinoids Screen Neg (NEG) Urine Ethyl Alcohol Neg (NEG) Test 09/24/21 21:30 09/25/21 04:45 09/25/21 04:50 SARS-CoV-2 RNA (JIGNA) Negative (Negative) SARS-CoV-2 Antigen (Rapid) Negative (NEGATIVE) White Blood Count 5.1 x10^3/uL (4.0-11.0) Red Blood Count 3.87 x10^6/uL (3.50-5.40) Hemoglobin 11.7 g/dL (12.0-15.5) Hematocrit 35.1 % (36.0-47.0) Mean Corpuscular Volume 91 fL (79-100) Mean Corpuscular Hemoglobin 30 pg (25-35) Mean Corpuscular Hemoglobin Concent 33 g/dL (31-37) Red Cell Distribution Width 13.0 % (11.5-14.5) Platelet Count 229 x10^3/uL (140-400) Neutrophils (%) (Auto) 44 % (31-73) Lymphocytes (%) (Auto) 42 % (24-48) Monocytes (%) (Auto) 10 % (0-9) Eosinophils (%) (Auto) 4 % (0-3) Basophils (%) (Auto) 1 % (0-3) Neutrophils # (Auto) 2.2 x10^3/uL (1.8-7.7) Lymphocytes # (Auto) 2.2 x10^3/uL (1.0-4.8) Monocytes # (Auto) 0.5 x10^3/uL (0.0-1.1) Eosinophils # (Auto) 0.2 x10^3/uL (0.0-0.7) Basophils # (Auto) 0.0 x10^3/uL (0.0-0.2) Triglycerides Level 106 mg/dL (0-150) Cholesterol Level 200 mg/dL (0-200) LDL Cholesterol, Calculated 118 mg/dL (0-100) VLDL Cholesterol, Calculated 21 mg/dL (0-40) Non-HDL Cholesterol Calculated 139 mg/dL (0-129) HDL Cholesterol 61 mg/dL (40-60) Cholesterol/HDL Ratio 3.3 Sodium Level 142 mmol/L (136-145) Potassium Level 3.9 mmol/L (3.5-5.1) Chloride Level 105 mmol/L (98-107) Carbon Dioxide Level 30 mmol/L (21-32) Anion Gap 7 (6-14) Blood Urea Nitrogen 13 mg/dL (7-20) Creatinine 0.6 mg/dL (0.6-1.0) Estimated GFR (Cockcroft-Gault) 104.2 BUN/Creatinine Ratio 22 (6-20) Glucose Level 73 mg/dL (70-99) Calcium Level 8.7 mg/dL (8.5-10.1) Total Bilirubin 0.2 mg/dL (0.2-1.0) Aspartate Amino Transf (AST/SGOT) 13 U/L (15-37) Alanine Aminotransferase (ALT/SGPT) 17 U/L (14-59) Alkaline Phosphatase 128 U/L (46-116) Total Protein 6.2 g/dL (6.4-8.2) Albumin 3.2 g/dL (3.4-5.0) Albumin/Globulin Ratio 1.1 (1.0-1.7) Laboratory Tests Test 09/24/21 15:24 09/24/21 15:53 09/24/21 17:58 09/24/21 20:07 White Blood Count 5.2 x10^3/uL (4.0-11.0) Red Blood Count 4.32 x10^6/uL (3.50-5.40) Hemoglobin 13.4 g/dL (12.0-15.5) Hematocrit 39.1 % (36.0-47.0) Mean Corpuscular Volume 90 fL (79-100) Mean Corpuscular Hemoglobin 31 pg (25-35) Mean Corpuscular Hemoglobin Concent 34 g/dL (31-37) Red Cell Distribution Width 13.3 % (11.5-14.5) Platelet Count 273 x10^3/uL (140-400) Neutrophils (%) (Auto) 58 % (31-73) Lymphocytes (%) (Auto) 32 % (24-48) Monocytes (%) (Auto) 6 % (0-9) Eosinophils (%) (Auto) 3 % (0-3) Basophils (%) (Auto) 1 % (0-3) Neutrophils # (Auto) 3.0 x10^3/uL (1.8-7.7) Lymphocytes # (Auto) 1.7 x10^3/uL (1.0-4.8) Monocytes # (Auto) 0.3 x10^3/uL (0.0-1.1) Eosinophils # (Auto) 0.2 x10^3/uL (0.0-0.7) Basophils # (Auto) 0.0 x10^3/uL (0.0-0.2) Sodium Level 138 mmol/L (136-145) Potassium Level 3.8 mmol/L (3.5-5.1) Chloride Level 103 mmol/L (98-107) Carbon Dioxide Level 25 mmol/L (21-32) Anion Gap 10 (6-14) Blood Urea Nitrogen 10 mg/dL (7-20) Creatinine 0.7 mg/dL (0.6-1.0) Estimated GFR (Cockcroft-Gault) 87.2 BUN/Creatinine Ratio 14 (6-20) Glucose Level 101 mg/dL (70-99) Calcium Level 8.5 mg/dL (8.5-10.1) Magnesium Level 1.9 mg/dL (1.8-2.4) Total Bilirubin 0.1 mg/dL (0.2-1.0) Aspartate Amino Transf (AST/SGOT) 11 U/L (15-37) Alanine Aminotransferase (ALT/SGPT) 21 U/L (14-59) Alkaline Phosphatase 148 U/L (46-116) Troponin I High Sensitivity 5 ng/L (4-50) < 4 ng/L (4-50) 4 ng/L (4-50) LW-Xcc-M-Type Natriuretic Peptide 127 pg/mL (0-124) Total Protein 6.8 g/dL (6.4-8.2) Albumin 3.5 g/dL (3.4-5.0) Albumin/Globulin Ratio 1.1 (1.0-1.7) Thyroid Stimulating Hormone (TSH) 0.680 uIU/mL (0.358-3.74) Urine Collection Type Unknown Urine Color Yellow Urine Clarity Clear Urine pH 6.0 (<5.0-8.0) Urine Specific [place] 1.015 (1.000-1.030) Urine Protein Negative mg/dL (NEG-TRACE) Urine Glucose (UA) Negative mg/dL (NEG) Urine Ketones (Stick) Negative mg/dL (NEG) Urine Blood Negative (NEG) Urine Nitrite Negative (NEG) Urine Bilirubin Negative (NEG) Urine Urobilinogen Dipstick 0.2 mg/dL (0.2 mg/dL) Urine Leukocyte Esterase Negative (NEG) Urine RBC 0 /HPF (0-2) Urine WBC 0 /HPF (0-4) Urine Squamous Epithelial Cells Mod /LPF Urine Bacteria Moderate /HPF (0-FEW) Urine Mucus Slight /LPF Urine Opiates Screen Pos (NEG) Urine Methadone Screen Neg (NEG) Urine Barbiturates Pos (NEG) Urine Phencyclidine Screen Neg (NEG) Urine Amphetamine/Methamphetamine Neg (NEG) Urine Benzodiazepines Screen Neg (NEG) Urine Cocaine Screen Neg (NEG) Urine Cannabinoids Screen Neg (NEG) Urine Ethyl Alcohol Neg (NEG) Test 09/24/21 21:30 09/25/21 04:45 09/25/21 04:50 SARS-CoV-2 RNA (JIGNA) Negative (Negative) SARS-CoV-2 Antigen (Rapid) Negative (NEGATIVE) White Blood Count 5.1 x10^3/uL (4.0-11.0) Red Blood Count 3.87 x10^6/uL (3.50-5.40) Hemoglobin 11.7 g/dL (12.0-15.5) Hematocrit 35.1 % (36.0-47.0) Mean Corpuscular Volume 91 fL (79-100) Mean Corpuscular Hemoglobin 30 pg (25-35) Mean Corpuscular Hemoglobin Concent 33 g/dL (31-37) Red Cell Distribution Width 13.0 % (11.5-14.5) Platelet Count 229 x10^3/uL (140-400) Neutrophils (%) (Auto) 44 % (31-73) Lymphocytes (%) (Auto) 42 % (24-48) Monocytes (%) (Auto) 10 % (0-9) Eosinophils (%) (Auto) 4 % (0-3) Basophils (%) (Auto) 1 % (0-3) Neutrophils # (Auto) 2.2 x10^3/uL (1.8-7.7) Lymphocytes # (Auto) 2.2 x10^3/uL (1.0-4.8) Monocytes # (Auto) 0.5 x10^3/uL (0.0-1.1) Eosinophils # (Auto) 0.2 x10^3/uL (0.0-0.7) Basophils # (Auto) 0.0 x10^3/uL (0.0-0.2) Triglycerides Level 106 mg/dL (0-150) Cholesterol Level 200 mg/dL (0-200) LDL Cholesterol, Calculated 118 mg/dL (0-100) VLDL Cholesterol, Calculated 21 mg/dL (0-40) Non-HDL Cholesterol Calculated 139 mg/dL (0-129) HDL Cholesterol 61 mg/dL (40-60) Cholesterol/HDL Ratio 3.3 Sodium Level 142 mmol/L (136-145) Potassium Level 3.9 mmol/L (3.5-5.1) Chloride Level 105 mmol/L (98-107) Carbon Dioxide Level 30 mmol/L (21-32) Anion Gap 7 (6-14) Blood Urea Nitrogen 13 mg/dL (7-20) Creatinine 0.6 mg/dL (0.6-1.0) Estimated GFR (Cockcroft-Gault) 104.2 BUN/Creatinine Ratio 22 (6-20) Glucose Level 73 mg/dL (70-99) Calcium Level 8.7 mg/dL (8.5-10.1) Total Bilirubin 0.2 mg/dL (0.2-1.0) Aspartate Amino Transf (AST/SGOT) 13 U/L (15-37) Alanine Aminotransferase (ALT/SGPT) 17 U/L (14-59) Alkaline Phosphatase 128 U/L (46-116) Total Protein 6.2 g/dL (6.4-8.2) Albumin 3.2 g/dL (3.4-5.0) Albumin/Globulin Ratio 1.1 (1.0-1.7) Assessment/Plan Assessment/Plan Chest pain secondary to CAD previous PCI. History anxiety depression hypertension -Patient presented with chest pain to emergency room overnight -Notable cardiac history -Cardiology consulted in emergency room. Appears that they are planning for catheterization today -Patient really without complaints otherwise -Continue home meds -Cardiac meds per cardiology -DVT prophylaxis -Cardiac diet after procedure Justifications for Admission Other Justification BRAD DOMINIQUE MD Sep 25, 2021 13:08
[2021-09-25] MEDS: ASPIRIN ENTERIC COATED 81 MG TABLET.DR. PO SCH (13:18)
--- NOTE | 2021-09-25 14:23 | CARD ---
MR#: [id number] Date of Study: 09/25/2021 Ordering Physician: SURENDRA ALBARRAN, Referring Physician: SURENDRA ALBARRAN, Tech: RT Beka(R) APPROVED REPORT Technologist: RT Beka(R) Nurse: Chelsi Bullard RN Procedure(s) performed: MODERATE SEDATION TIME: 36 MINUTES FLUORO TIME: 4.7 MIN DOSE: 62.8 GYCM2 CONTRAST: 117CC VISI LHC, Coronary angiography Left ventriculogram Aortogram INDICATION The indication(s) include : unstable angina . [facility] Clinical Frailty Scale [facility] Clinical Frailty Scale: Managing Well Heart Failure Heart Failure: No CASE TECHNIQUE IV conscious sedation was used throughout procedure with appropriate monitoring and was performed in the presence of a registered nurse who was an independent trained observer other than the physician p erforming the procedure. During this case, Fluoroscopy and low osmolar contrast were used for imaging . Specimen(s) Removed: N/A Estimated Blood loss: 15 cc's. PROCEDURE NARRATIVE Clinical information: 56-year-old woman who presents to the hospital in the setting of unstable angina with recurrent chest pain within 1 week in the setting of prior history of hypertension, tobacco abuse. Informed consent: Written informed consent was obtained from the patient after adequate discussion of the risks and hermes efits of the procedure. Procedure details: ACCESS: The right wrist was prepped and draped in usual sterile fashion. Under 1% lidocaine local anesthesia a 6 [place] Terumo sheath was placed in the right radial artery via the Seldinger technique. DIAGNOSTIC ANGIOGRAPHY: Right and left coronary arteries were engaged with a 6 [place] TIG catheter. Diagnostic angiography i n multiple views were obtained. Next, a 6 [place] pigtail catheter was placed in the left ventricle a nd a LVEDP was measured. A pullback was performed after left ventriculography. An AL1 catheter was also used to identify for any possibility of anomalous take-off of the left circumflex but after sree ral minutes, no other coronary ostium was evident. All catheters were exchanged over J-tip guidewire. FINDINGS: ======= Aorta: 110/80 LVEDP: 15 mmHg Left ventriculogram: Ejection fraction 55% Normal wall motion without any evidence of aortic or mitral insufficiency. Coronary angiography: LM: Large caliber vessel with normal angiographic appearance LAD: Moderate caliber vessel with normal angiographic appearance. D1: Small caliber vessel with normal angiographic appearance LCX:Small caliber nondominant vessel. RCA: Very Large caliber hyper dominant vessel with normal angiographic appearance. RPDA: Large caliber vessel with early bifurcation with normal angiographic appearance. RPL: Large caliber vessel wtih normal angiographic appearance. Aortogram: A sending aortography was performed to evaluate for any evidence of anomalous coronary art eries given the very small caliber left circumflex. No obvious evidence of anomalous coronary arteri es were noted. No significant aortic aneurysm or dissection noted. CLOSURE: At case completion the right radial sheath was removed and a Terumo radial band was applied with 11 m L of air. Hemostasis was achieved. COMPLICATIONS: No acute complications noted Conclusion 1. Normal left-sided filling pressures. 2. Normal LV systolic function. EF 55%. 3. No evidence of significant coronary artery disease with hyperdominant right coronary artery. Recommendations Smoking Cessation Aggressive Medical Therapy Weight Loss Reduction Program Signed by : Ke Gutierrez, Electronically Approved : 09/25/2021 14:22:43
[2021-09-25] MEDS ORDERED: rOPINIRole 1 MG TABLET. PO SCH (21:00)
[2021-09-25] MEDS ORDERED: ATORVASTATIN CALCIUM 20 MG TABLET PO SCH (21:00)
[2021-09-25] MEDS ORDERED: METO50TA6 PO (22:45)
[2021-09-25] MEDS: METOPROLOL TART IMMED RELEASE 50 MG TABLET. PO SCH (23:10)
[2021-09-26 02:17] VITALS: BP 83/53
[2021-09-26] MEDS ORDERED: ACETAMINOPHEN 325 MG TABLET. PO PRN (02:30)
[2021-09-26 07:00] VITALS: BP 86/49
[2021-09-26] MEDS: DULoxetine HCL 30 MG CAPSULE.DR PO SCH (08:10)
[2021-09-26] MEDS: GABAPENTIN 300 MG CAPSULE. PO SCH (08:11)
[2021-09-26] MEDS: ASPIRIN ENTERIC COATED 81 MG TABLET.DR. PO SCH (08:11)
[2021-09-26] MEDS: CYANOCOBALAMIN (VITAMIN B-12) 1,000 MCG TABLET. PO SCH (08:11)
[2021-09-26] MEDS: PANTOPRAZOLE 40 MG TABLET.DR. PO SCH (08:11)
[2021-09-26] MEDS: MORPHINE ER 30 MG TABLET.ER PO SCH (08:11)
[2021-09-26] MEDS: METOPROLOL TART IMMED RELEASE 50 MG TABLET. PO SCH (08:12)
[2021-09-26] MEDS: LISINOPRIL 10 MG TABLET PO SCH (08:13)
[2021-09-26] MEDS: clonazePAM 0.5 MG TABLET PO SCH (08:13)
[2021-09-26] MEDS: METHOCARBAMOL 750 MG TABLET PO SCH (08:17)
[2021-09-26] MEDS ORDERED: METOPROLOL TART IMMED RELEASE 50 MG TABLET. PO SCH ×2 (09:00→21:00)
--- NOTE | 2021-09-26 10:21 | CARD ---
MR#: [id number] Date of Study: 09/25/2021 Ordering Physician: SURENDRA ALBARRAN, Referring Physician: SURENDRA ALBARRAN, Tech: Terra Chandler Shanthi, [facility] APPROVED REPORT EXAM: Two-dimensional and M-mode echocardiogram with Doppler and color Doppler. Other Information Quality : AverageHR: 71bpm INDICATION Cardiac Disease: CAD Chest Pain RISK FACTORS Hypertension Smoking 2D DIMENSIONS Left Atrium(2D)3.5 (1.6-4.0cm)IVSd1.0 (0.7-1.1cm) Aortic Root(2D)3.0 (2.0-3.7cm)LVDd3.8 (3.9-5.9cm) LVOT Diameter2.1 (1.8-2.4cm)PWd1.0 (0.7-1.1cm) LVDs2.4 (2.5-4.0cm)FS (%) 37.3 % SV41.1 ml Aortic Valve AoV Peak Uche.133.6cm/sAoV VTI32.2cm AO Peak GR.7.1mmHgLVOT VTI 20.69cm AO Mean GR.6mmHg Mitral Valve MV E Npqozrqn58.3cm/sMV E Peak Gr.3mmHg MV DECEL [id number] A Mtxvkjrt61.6cm/s MV E Mean Gr.1mmHgE/A Ratio0.9 TDI Lateral E' P. V8.50cm/sMedial E' P. V5.99cm/s E/Lateral E'6.5E/Medial E'9.2 Tricuspid Valve TR P. [id number]/sRAP [id number] TR Peak Gr.34sgUsXBMI33psZs LEFT VENTRICLE The left ventricle is normal size. There is normal left ventricular wall thickness. The left ventricu lar systolic function is normal and the ejection fraction is within normal range. The Ejection Fracti on is 50-55%. There is normal LV segmental wall motion. Transmitral Doppler flow pattern is Grade II- pseudonormal filling dynamics. RIGHT VENTRICLE The right ventricle is normal size. There is normal right ventricular wall thickness. The right ventr icular systolic function is normal. ATRIA The left atrium is borderline dilated. The right atrium size is normal. The interatrial septum is int act with no evidence for an atrial septal defect or patent foramen ovale as noted on 2-D or Doppler i maging. AORTIC VALVE The aortic valve is normal in structure and function. Doppler and Color Flow revealed no significant aortic regurgitation. Calculated aortic valve area is 2.24 cm2 with maximum pressure gradient of 12 m mHg and mean pressure gradient of 6 mmHg. There is no significant aortic valvular stenosis. MITRAL VALVE The mitral valve is normal in structure and function. There is no evidence of mitral valve prolapse. There is no mitral valve stenosis. Doppler and Color-flow revealed trace mitral regurgitation. TRICUSPID VALVE The tricuspid valve is normal in structure and function. Doppler and Color Flow revealed trace tricus pid regurgitation with an estimated PAP of 29 mmHg. There is no tricuspid valve stenosis. PULMONIC VALVE The pulmonic valve is not well visualized. Doppler and Color Flow revealed no pulmonic valvular regur gitation. GREAT VESSELS The aortic root is normal in size. The IVC is normal in size and collapses >50% with inspiration. PERICARDIAL EFFUSION There is no evidence of significant pericardial effusion. Critical Notification Critical Value: No <Conclusion> The left ventricle is normal size. The left ventricular systolic function is normal and the ejection fraction is within normal range. The Ejection Fraction is 50-55%. There is normal LV segmental wall motion. Doppler and Color Flow revealed no significant aortic regurgitation. There is no significant aortic valvular stenosis. Doppler and Color-flow revealed trace mitral regurgitation. Doppler and Color Flow revealed trace tricuspid regurgitation with an estimated PAP of 29 mmHg. Signed by : Darrius Centeno MD Electronically Approved : 09/26/2021 10:21:27
--- NOTE | 2021-09-26 10:32 | NUR ---
SS following up with discharge planning. SS reviewed pt chart and discussed with pt RN. Pt is from home with spouse and is currently on room air. Pt had heart cath on 09/25/2021. COVID19 negative. Anticipate discharge to home today. SS will continue to follow for discharge planning.
[2021-09-26 11:00] VITALS: BP 88/51
--- NOTE | 2021-09-26 11:39 | PDOC3 ---
[facility]-Discharge Summary Date of Admission: Date of Admission: Sep 24, 2021 Date of Discharge: Date of Discharge: Sep 26, 2021 Admission Diagnosis: Problems: (1) Chest pain Discharge Diagnosis: Discharge Diagnosis: Same Consults: Consults: Cardiology Procedures: Procedures: FINDINGS: ======= Aorta: 110/80 LVEDP: 15 mmHg Left ventriculogram: Ejection fraction 55% Normal wall motion without any evidence of aortic or mitral insufficiency. Coronary angiography: LM: Large caliber vessel with normal angiographic appearance LAD: Moderate caliber vessel with normal angiographic appearance. D1: Small caliber vessel with normal angiographic appearance LCX:Small caliber nondominant vessel. RCA: Very Large caliber hyper dominant vessel with normal angiographic appearance. RPDA: Large caliber vessel with early bifurcation with normal angiographic appearance. RPL: Large caliber vessel wtih normal angiographic appearance. Aortogram: A sending aortography was performed to evaluate for any evidence of anomalous coronary arteries given the very small caliber left circumflex. No obvious evidence of anomalous coronary arteries were noted. No significant aortic aneurysm or dissection noted. CLOSURE: At case completion the right radial sheath was removed and a Terumo radial band was applied with 11 mL of air. Hemostasis was achieved. COMPLICATIONS: No acute complications noted Conclusion 1. Normal left-sided filling pressures. 2. Normal LV systolic function. EF 55%. 3. No evidence of significant coronary artery disease with hyperdominant right coronary artery. Recommendations Smoking Cessation Aggressive Medical Therapy Weight Loss Reduction Program Signed by : Ke Gutierrez, Electronically Approved : 09/25/2021 14:22:43 Hospital Course: Hospital Course: Patient is a 56 year old female with a history of angioplasty, anxiety, depression, HTN, who presents to the ED overnight c/o substernal chest pain radiating to the right armpit with shortness of breath; symptoms began a week ago. Patient denies anything specifically exacerbating or relieving the symptoms. She states the symptoms are intermittent. She states she took 2 nitroglycerin with relief of her pain. She states she thinks it could be anxiety but wanted to be checked out. Evaluated by cardiology planning for cath 09/25 09/26 Patient evaluated examined at bedside. Having a little bit of chest pressure still but definitely improved. Says she still feeling pretty fatigued and weak which is to be expected. Inquiring about her echo results. Okay for discharge later this afternoon. Greater than 30 minutes spent on this discharge. Disposition: Disposition/Orders: D/C to Home Activity: Activity: Resume previous activity Diet: Diet: Cardiac Medications: Home Meds Active Scripts Lisinopril (LISINOPRIL) 5 Mg Tablet, 5 MG PO DAILY for htn for 60 Days, #60 TAB Prov:BRAD DOMINIQUE MD 09/26/21 Metoprolol Tartrate (METOPROLOL TARTRATE) 25 Mg Tablet, 12.5 MG PO BID for htn for 60 Days, #60 TAB Prov:BRAD DOMINIQUE MD 09/26/21 Aspirin (ASPIRIN EC) 81 Mg Tablet.dr, 81 MG PO DAILYWBKFT for cad for 60 Days, #60 TAB.SR Prov:BRAD DOIMNIQUE MD 09/26/21 Atorvastatin Calcium (ATORVASTATIN CALCIUM) 20 Mg Tablet, 20 MG PO QHS for cad for 60 Days, #60 TAB Prov:BRAD DOMINIQUE MD 09/26/21 Reported Medications Cyanocobalamin (Vitamin B-12) (VITAMIN B-12) 1,000 Mcg Tablet, 1000 MCG PO DAILY for supplement, TAB 09/25/21 Tizanidine Hcl (TIZANIDINE HCL) 4 Mg Tablet, 2 MG PO TID PRN for MUSCLE SPASMS, TAB 09/25/21 Morphine Sulfate (MORPHINE SULFATE ER) 30 Mg Tablet.er, 1 TAB PO BID for chronic pain, #60 TAB 09/25/21 Methocarbamol (METHOCARBAMOL) 750 Mg Tablet, 750 MG PO TID for muscle spasms, TAB 09/25/21 Ropinirole Hcl (ROPINIROLE HCL) 1 Mg Tablet, 1 MG PO QHS for restless leg, TAB 09/25/21 Clonazepam (CLONAZEPAM) 1 Mg Tablet, 0.5 MG PO BID for FOR ANXIETY, TAB 09/25/21 Omeprazole (OMEPRAZOLE) 40 Mg Capsule.dr, 40 MG PO DAILY for GERD, CAP 09/25/21 Duloxetine Hcl (CYMBALTA) 60 Mg Capsule.dr, 60 MG PO DAILY for depression, CAP 09/25/21 Gabapentin (GABAPENTIN ) 300 Mg Capsule, 300 MG PO BID for NEUROGENIC PAIN, CAP 09/25/21 Discontinued Reported Medications Metoprolol Tartrate (METOPROLOL TARTRATE) 50 Mg Tablet, 50 MG PO BID for FOR HYPERTENSION, #60 TAB 0 Refills 09/25/21 Lisinopril (LISINOPRIL) 10 Mg Tablet, 10 MG PO DAILY for FOR HYPERTENSION, #30 TAB 0 Refills 09/25/21 Scheduled Aspirin (Aspirin Ec), 81 MG PO DAILYWBKFT Atorvastatin Calcium (Atorvastatin Calcium), 20 MG PO QHS Clonazepam (Clonazepam), 0.5 MG PO BID, (Reported) Cyanocobalamin (Vitamin B-12) (Vitamin B-12), 1,000 MCG PO DAILY, (Reported) Duloxetine Hcl (Cymbalta), 60 MG PO DAILY, (Reported) Gabapentin (Gabapentin ), 300 MG PO BID, (Reported) Lisinopril (Lisinopril), 5 MG PO DAILY Methocarbamol (Methocarbamol), 750 MG PO TID, (Reported) Metoprolol Tartrate (Metoprolol Tartrate), 12.5 MG PO BID Morphine Sulfate (Morphine Sulfate Er), 1 TAB PO BID, (Reported) Omeprazole (Omeprazole), 40 MG PO DAILY, (Reported) Ropinirole Hcl (Ropinirole Hcl), 1 MG PO QHS, (Reported) Scheduled PRN Tizanidine Hcl (Tizanidine Hcl), 2 MG PO TID PRN for MUSCLE SPASMS, (Reported) Discontinued Medications Lisinopril (Lisinopril), 10 MG PO DAILY, (Reported) Metoprolol Tartrate (Metoprolol Tartrate), 50 MG PO BID, (Reported) Justicifation of Admission Dx: Justifications for Admission: Justification of Admission Dx: Yes VT: Acute NSTEMI BRAD DOMINIQUE MD Sep 26, 2021 11:39
[2021-09-26] MEDS ORDERED: ASPI-886 PO (11:42)
[2021-09-26] MEDS ORDERED: ATOR20TA58 PO (11:42)
--- NOTE | 2021-09-26 11:45 | PDOC ---
JACKIELLOYDDrewLALIDONNAMiguel Loo HOME CHILD CARE PROVIDER 09/26/21 1145: CARDIO Progress Notes Date and Time Date of Service 09/26/2021 Time of Evaluation 1120 Subjective Subjective: No Chest Pain, No shortness of breath, No Palpitations Vitals Vitals Vital Signs Date Time Temp Pulse Resp B/P (MAP) Pulse Ox O2 Delivery O2 Flow Rate FiO2 09/26/21 11:00 98.8 80 16 88/51 (63) 95 Room Air 98.8 09/26/21 08:00 2.0 Weight Weight [ ] Input and Output Intake and Output Intake and Output 09/26/21 07:00 Intake Total 650 ml Balance 650 ml Intake Oral 650 ml # Voids 3 Microbiology Micro Microbiology 09/24/21 Urine Culture - Final, Complete Physical Exam HEENT: Neck Supple W Full Motion Chest: Symmetric LUNGS: Clear to Auscultation Heart: RRR (SR) Abdomen: Soft N/T Extremities: No Edema, No Calf Tenderness Neurology: alert, oriented, follow commands Assessment Assessment 1. Chest pain: UA features. LHC revealed no significant coronary lesions. EF and WM nml 2. CAD: PCI 15 yrs ago 3. HTN: controlled 4. HLP 5. 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 Tobaccoism 7. Chronic back pain with spinal stenosis and spinal stimulator placed 3 months ago. to be referred to pain mgmt 8. Hypotension: back pain meds could be contributing, very brief episoded of SB otherwise no pauses and SR. Recommendations 1. Establish outpt cardiology followup on November 03 at 9:45AM 2. ASA. Statin 3. Decrease metoprolol and lisinopril. discussed HBPM and will uptitrate pending BP trend. 4. Smoking cessation 5. Will need outpt PFTs Justicifation of Admission Dx: Justifications for Admission: Justification of Admission Dx: Yes WALTER LLOYD MD 09/26/21 1729: CARDIO Progress Notes Plan Plan The patient was seen and interviewed as well as examined at the bedside. The chart was reviewed. The case was discussed. Agree with the plan of care. SURENDRA ALBARRAN APRN Sep 26, 2021 11:45 WALTER LLOYD MD Sep 26, 2021 17:29
[2021-09-26] MEDS ORDERED: METO25TA4 PO (12:26)
[2021-09-26] MEDS ORDERED: LISI5TAB15 PO (12:26)
[2021-09-26] MEDS ORDERED: METOPROLOL TART IMMED RELEASE 25 MG TABLET. PO SCH (21:00)
[2021-09-27] MEDS ORDERED: LISINOPRIL 5 MG TABLET. PO SCH (09:00)
== END 2021-09-26 14:05 | disposition home or self-care (01) ==
LOC: ER 14:59 → INTOOBSV 19:24 → 6 SOUTH 19:24
PROVIDERS: ADMIT Internal Medicine; ATTEND Internal Medicine
DX: I25.10 Atherosclerotic heart disease of native coronary artery without angina pectoris (principal); Z20.822 Contact with and (suspected) exposure to COVID-19; R07.89 Other chest pain; I10 Essential (primary) hypertension; I95.9 Hypotension, unspecified; E03.9 Hypothyroidism, unspecified; E78.5 Hyperlipidemia, unspecified; G89.4 Chronic pain syndrome; M19.90 Unspecified osteoarthritis, unspecified site; Q07.00 Arnold-Chiari syndrome without spina bifida or hydrocephalus; M54.50 Low back pain, unspecified; K21.9 Gastro-esophageal reflux disease without esophagitis; F41.9 Anxiety disorder, unspecified; F32.A Depression, unspecified; F17.210 Nicotine dependence, cigarettes, uncomplicated; Z86.718 Personal history of other venous thrombosis and embolism; Z86.73 Personal history of transient ischemic attack (TIA), and cerebral infarction without residual deficits; Z90.710 Acquired absence of both cervix and uterus; Z98.61 Coronary angioplasty status; Z79.82 Long term (current) use of aspirin; Z79.899 Other long term (current) drug therapy; Z98.890 Other specified postprocedural states
CPT/HCPCS: 36415; 71045; 80053; 80061; 80307; 81001; 83735; 83880; 84443; 84484; 85025; 87086; 87426; 93005; 93306; 93458; 93567; 96374; 96376; 99152; 99153; 99285; C1769; C1894; G0378; J1644; J2250; J2270; J3010; J3490; Q9967; U0003; U0005; G0379